=== PATIENT | female | born 1990 | race Two or more races ===

== ENCOUNTER 2018-09-25 16:16 | Emergency (ER) | payer OTHER ==
[~2018-09-25] VITALS: Ht 162.6 cm; Wt 54.0 kg
--- NOTE | 2018-09-25 16:31 | NUR ---
PT HAS FACIAL SWELLING THAT COMES AND GOES BUT WORSE TODAY. SOMETIMES HER FINGERS CONTRACT WHERE THEY ARE HARD TO STRAIGHTEN. LAST NIGHT SHE FELT LIKE SHE COULDNT BREATHE BECAUSE THE RIGHT SIDE OF HER THROAT WAS SWOLLEN.
--- NOTE | 2018-09-25 17:08 | NUR ---
PT TO XR VIA [facility].
[2018-09-25 17:21] VITALS: BP 90/48
[2018-09-25 17:21] LABS: BASOPHILS # (AUTO) 0.03 x10^3/uL (0-0.1); BASOPHILS % (AUTO) 1 % (0-1); EOSINOPHILS # (AUTO) 0.15 x10^3/uL (0-0.4); EOSINOPHILS % (AUTO) 2 % (1-7); LYMPHOCYTES # (AUTO) 2.42 x10^3/uL (1-3.4); LYMPHOCYTES % (AUTO) 33 % (22-44); MD NO; MEAN CORPUSCULAR HEMOGLOBIN 30.6 pg (27.0-34.8); MEAN CORPUSCULAR HGB CONC 33.5 g/dL (32.4-35.8); MEAN CORPUSCULAR VOLUME 91.4 fL (80-100); MEAN PLATELET VOLUME 8.9 fL (7.4-10.4); MONOCYTES # (AUTO) 0.35 x10^3/uL (0.2-0.8); MONOCYTES % (AUTO) 5 % (2-9); NEUTROPHILS # (AUTO) 4.29 x10^3/uL (1.8-6.8); NEUTROPHILS % (AUTO) 59 % (42-75); PLATELET COUNT 214 x10^3/uL (130-400); RED BLOOD COUNT 3.45 x10^6/uL (3.82-5.3); RED CELL DISTRIBUTION WIDTH 12.6 % (9.6-15.2)
[2018-09-25 17:27] LABS: INTERNATIONAL NORMALIZED RATIO 1.13 (0.93-1.1); PROTHROMBIN TIME 11.8 Seconds (9.6-11.5)
[2018-09-25 17:29] LABS: ALANINE AMINOTRANSFERASE 35 U/L (12-78); ALBUMIN 1.9 g/dL (3.4-5.0); ANION GAP 4 mmol/L (5-15); CALCIUM 7.7 mg/dL (8.5-10.1); CHLORIDE 110 mmol/L (98-107); CREATININE 0.95 mg/dL (0.55-1.02)
[2018-09-25 17:33] LABS: ALKALINE PHOSPHATASE 136 U/L (45-117); BILIRUBIN,TOTAL 0.2 mg/dL (0.2-1.0); TOTAL PROTEIN 5.7 g/dL (6.4-8.2)
--- NOTE | 2018-09-25 17:49 | NUR ---
ERP WAS IN FOR RECHECK.
--- NOTE | 2018-09-25 18:22 | NUR ---
PT WAS UP TO BR, INSTRUCTED ON CLEAN CATCH URINE SAMPLE.
[2018-09-25 18:34] LABS: MICROSCOPIC NOT IND
[2018-09-25 18:42] LABS: CULTURE INDICATED? NO
--- NOTE | 2018-09-25 18:57 | NUR ---
D/C INSTRUCTIONS & F/U APPT RV'WD WITH PT, SHE VERBALIZES UNDERSTANDING. COPY OF LAB RESULTS PROVIDED PER HER REQUEST. AMBULATED OUT OF ED WITH FAMILY WITHOUT DIFFICULTY.
== END 2018-09-25 19:00 | disposition home or self-care (01) ==
LOC: ED 18:52
DX: R22.0 Localized swelling, mass and lump, head (principal); R25.2 Cramp and spasm; E88.09 Other disorders of plasma-protein metabolism, not elsewhere classified; N91.2 Amenorrhea, unspecified
CPT/HCPCS: 36415; 71046; 80053; 81003; 82330; 83690; 84443; 84703; 85025; 85610; 85730; 93005; 99284

== ENCOUNTER → 2019-11-29 | Outpatient (CLI) | payer OTHER ==
[~2019-11-29] MED LIST: IRON
== END | disposition home or self-care (01) ==
LOC: CFH 09:37
PROVIDERS: ATTEND Internal Medicine Gastroenterology
DX: K76.0 Fatty (change of) liver, not elsewhere classified (principal); K86.89 Other specified diseases of pancreas
CPT/HCPCS: 76700